=== PATIENT | female | born 1975 | race Caucasian/White ===

== ENCOUNTER → 2017-06-02 | Outpatient (CLI) | payer MEDICAID ==
--- NOTE | 2017-06-02 12:45 | RADIOLOGY REPORT (SQ) ---
EXAM DESCRIPTION: HIP RIGHT AP/LATERAL COMPLETED DATE/TIME: 06/02/2017 11:42 am REASON FOR STUDY: LOW BACK PAIN/RIGHT HIP PAIN M54.5 LOW BACK PAIN M25.551 PAIN IN RIGHT HIP COMPARISON: None. NUMBER OF VIEWS: Two views. TECHNIQUE: AP pelvis and additional frog-leg view of the right hip. LIMITATIONS: None. FINDINGS: MINERALIZATION: Normal. RIGHT HIP: No fracture or dislocation. No worrisome bone lesions. LEFT HIP: No fracture or dislocation. No worrisome bone lesions. PUBIS AND ISCHIUM: No fracture. PELVIS: No fracture. SACRUM: There is mild sclerosis of the lower aspect of the left sacroiliac joint. LOWER LUMBAR SPINE: No fracture or dislocation. No worrisome bone lesions. No significant disc disea se. SOFT TISSUES: No findings. OTHER: No other significant finding. IMPRESSION: 1. Normal right hip. 2. Possible left sacroiliitis. TECHNICAL DOCUMENTATION: JOB ID: [id number] [employer]- All Rights Reserved
--- NOTE | 2017-06-02 12:46 | RADIOLOGY REPORT (SQ) ---
EXAM DESCRIPTION: LUMBAR SPINE COMPLETE COMPLETED DATE/TIME: 06/02/2017 11:42 am REASON FOR STUDY: LOW BACK PAIN/RIGHT HIP PAIN M54.5 LOW BACK PAIN M25.551 PAIN IN RIGHT HIP COMPARISON: None. NUMBER OF VIEWS: Five views including obliques. TECHNIQUE: AP, lateral, oblique, and sacral radiographic images acquired of the lumbar spine. LIMITATIONS: None. FINDINGS: MINERALIZATION: Normal. SEGMENTATION: Normal. No transitional anatomy. ALIGNMENT: Minimal levoscoliosis. This could be positional. VERTEBRAE: Maintained height. No fracture or worrisome bone lesion. DISCS: Preserved height. No significant osteophytes or end plate irregularity. POSTERIOR ELEMENTS: Pedicles and facets are intact. No pars defect or posterior arch defects. HARDWARE: None in the spine. PARASPINAL SOFT TISSUES: Normal. PELVIS: Intact as visualized. No fractures or worrisome bone lesions. SI joints intact. OTHER: No other significant finding. IMPRESSION: The study is essentially normal. Minimal scoliosis as described. TECHNICAL DOCUMENTATION: JOB ID: [id number] [employer]- All Rights Reserved
== END ==
LOC: OD 11:27
PROVIDERS: ATTEND Physician Assistant
DX: M54.5 Low back pain (principal); M25.551 Pain in right hip
CPT/HCPCS: 72110

== ENCOUNTER 2017-06-13 17:18 | Emergency (ER) | payer MEDICAID ==
[2017-06-13] MEDS ORDERED: NORMAL SALINE 1000 ML 1,000 ML IV PRN (17:39)
[2017-06-13] MEDS ORDERED: ONDANSETRON HCL INJ/PF 4 MG/2 ML SDV IV ONE ×2 (17:39→19:34)
--- NOTE | 2017-06-13 17:42 | ER Document Report ---
ED Medical Screen (RME) - General Chief Complaint: Dizziness Stated Complaint: DIZZINESS Time Seen by Provider: 06/13/17 17:39 Notes: Patient states approximately 1 hour before arrival she developed the sudden onset while bending over of severe dizziness. It was accompanied by a strange sensation that went down the left side of her neck. She states that she has to stay bent over at the waist because if she tries to sit up she has severe nausea vomiting and dizziness. She denies any pain in the neck or head. She denies any previous similar episodes. She does have a history of previous neck surgery and is on chronic pain medications for this. Patient also states she has very heavy periods and is scheduled for an ablation at the end of this week. TRAVEL OUTSIDE OF THE [place] IN LAST 30 DAYS: No - Related Data Allergies/Adverse Reactions: atropine sulfate [From Lomotil] Allergy (Unknown, Verified 06/08/17 15:31) Rash diphenoxylate HCl [From Lomotil] Allergy (Unknown, Verified 06/08/17 15:31) Rash Penicillins Allergy (Unknown, Verified 05/10/12 11:54) Sulfa (Sulfonamide Antibiotics) Allergy (Unknown, Verified 06/08/17 15:31) Rash adhesive tape Allergy (Verified 06/08/17 15:31) Rash latex Allergy (Verified 06/08/17 15:31) "burn rahman" morphine Allergy (Verified 06/08/17 15:53) "Hallucinating and Burning" Tetracyclines Allergy (Verified 06/08/17 15:31) "Really bad rash" Past Medical History Renal/ Medical History: Denies: Hx Peritoneal Dialysis Musculoskeltal Medical History: Reports Hx Arthritis, Reports Hx Muscle Spasm, Reports Hx Musculoskeletal Trauma - C5 Past Surgical History: Reports: Hx Cardiac Surgery - ablasion, Hx Section, Hx Cholecystectomy, Hx Tubal Ligation - Immunizations Hx Diphtheria, Pertussis, Tetanus Vaccination: Yes Physical Exam - Vital signs Vitals: Temp Pulse Resp BP Pulse Ox 97.7 F 88 20 145/88 H 98 06/13/17 17:24 06/13/17 17:24 06/13/17 17:24 06/13/17 17:24 06/13/17 17:24 Course - Vital Signs Vital signs: Temp Pulse Resp BP Pulse Ox 97.7 F 88 20 145/88 H 98 06/13/17 17:24 06/13/17 17:24 06/13/17 17:24 06/13/17 17:24 06/13/17 17:24
[2017-06-13 18:32] LABS: ABSOLUTE EOSINOPHILS # (AUTO) 0.1 10^3/uL (0.0-0.6); ABSOLUTE LYMPHOCYTES (AUTO) 1.8 10^3/uL (0.5-4.7); ABSOLUTE MONOCYTES (AUTO) 0.5 10^3/uL (0.1-1.4); ABSOLUTE NEUT (AUTO) 3.8 10^3/uL (1.7-8.2); BASOPHILS % (AUTO) 0.8 % (0-2); EOSINOPHILS % (AUTO) 1.7 % (0-6); HEMATOCRIT 37.9 % (36.0-47.0); HEMOGLOBIN 12.8 g/dL (12.0-15.5); HGB HCT DIFFERENCE 0.5; LYMPHOCYTES % (AUTO) 28.5 % (13-45); MEAN CORPUSCULAR HEMOGLOBIN 31.3 pg (27.0-33.4); MEAN CORPUSCULAR HGB CONC 33.9 g/dL (32.0-36.0); MEAN CORPUSCULAR VOLUME 92 fl (80-97); MONOCYTES % (AUTO) 8.7 % (3-13); RED CELL DISTRIBUTION WIDTH 13.5 % (11.5-14.0); SEGMENTED NEUTROPHILS % (AUTO) 60.3 % (42-78); WHITE BLOOD COUNT 6.3 10^3/uL (4.0-10.5)
[2017-06-13 18:46] LABS: ALANINE AMINOTRANSFERASE 31 U/L (9-52); ALBUMIN 4.2 g/dL (3.5-5.0); ALKALINE PHOSPHATASE 59 U/L (38-126); ANION GAP 10 (5-19); ASPARTATE AMINO TRANSFERASE 28 U/L (14-36); BILIRUBIN,DIRECT 0.4 mg/dL (0.0-0.4); BILIRUBIN,TOTAL 0.5 mg/dL (0.2-1.3); BLOOD UREA NITROGEN 12 mg/dL (7-20); CALCIUM 9.2 mg/dL (8.4-10.2); CARBON DIOXIDE 22 mmol/L (22-30); CHLORIDE 105 mmol/L (98-107); CREATININE RESULT 0.86 mg/dL (0.52-1.25); GLUCOSE 84 mg/dL (75-110); POTASSIUM 4.4 mmol/L (3.6-5.0)
[2017-06-13] MEDS ORDERED: MECLIZINE HCL 25 MG TABLET PO ONE (19:34)
[2017-06-13] MEDS ORDERED: LORAZEPAM 1 MG TABLET PO ONE (19:35)
--- NOTE | 2017-06-13 19:37 | ER Document Report ---
ED General - General TRAVEL OUTSIDE OF THE [place] IN LAST 30 DAYS: No <FRANSISCO KIRK - Last Filed: 06/14/17 05:14> <NORMAN BELL - Last Filed: 06/19/17 12:22> - General Chief Complaint: Dizziness Stated Complaint: DIZZINESS Time Seen by Provider: 06/13/17 17:39 Notes: Patient is a 41-year-old female that comes emergency department for chief complaint of dizziness and nausea, she states that she also felt the pain down the back of her neck earlier today. She states that she was bent over at work and tried to stand up but when she did the room starts to spin and she felt nauseated. She states that she feels like if she lies down or bends over she improves but if she looks up or stands up the room begins to spin again. She states she has had episodes of the same in the past but this is worse than usual. She denies a headache, focal numbness or weakness, trauma, fever, visual changes. Past medical history of cervical fusion years ago, chronic pain medicine for this, and dysfunctional uterine bleeding with pending ablation in about a week. She denies current abdominal pain. (FRANSISCO KIRK) - Related Data Allergies/Adverse Reactions: atropine sulfate [From Lomotil] Allergy (Unknown, Verified 06/08/17 15:31) Rash diphenoxylate HCl [From Lomotil] Allergy (Unknown, Verified 06/08/17 15:31) Rash Penicillins Allergy (Unknown, Verified 05/10/12 11:54) Sulfa (Sulfonamide Antibiotics) Allergy (Unknown, Verified 06/08/17 15:31) Rash adhesive tape Allergy (Verified 06/08/17 15:31) Rash latex Allergy (Verified 06/08/17 15:31) "burn rahman" morphine Allergy (Verified 06/08/17 15:53) "Hallucinating and Burning" Tetracyclines Allergy (Verified 06/08/17 15:31) "Really bad rash" Past Medical History - General Information source: Patient - Social History Smoking Status: Former Smoker Drug Abuse: None Lives with: Family Family History: Reviewed & Not Pertinent Patient has suicidal ideation: No Patient has homicidal ideation: No Renal/ Medical History: Denies: Hx Peritoneal Dialysis Musculoskeltal Medical History: Reports Hx Arthritis, Reports Hx Muscle Spasm, Reports Hx Musculoskeletal Trauma - C5 Past Surgical History: Reports: Hx Cardiac Surgery - ablasion, Hx Section, Hx Cholecystectomy, Hx Tubal Ligation - Immunizations Hx Diphtheria, Pertussis, Tetanus Vaccination: Yes <FRANSISCO KIRK - Last Filed: 06/14/17 05:14> Review of Systems - Review of Systems Constitutional: No symptoms reported EENT: No symptoms reported Cardiovascular: No symptoms reported Respiratory: No symptoms reported Gastrointestinal: See HPI Genitourinary: No symptoms reported Female Genitourinary: No symptoms reported Musculoskeletal: No symptoms reported Skin: No symptoms reported Hematologic/Lymphatic: No symptoms reported Neurological/Psychological: See HPI <FRANSISCO KIRK - Last Filed: 06/14/17 05:14> Physical Exam - Vital signs Interpretation: Normal - General General appearance: Alert, Other - Patient lying sideways on the bed, does not appear to be in distress, appears mildly uncomfortable. - HEENT Head: Normocephalic, Atraumatic Eyes: Normal Conjunctiva: Normal Extraocular movements intact: Yes Eyelashes: Normal Pupils: PERRL Nasal: Normal - Images and Mouth/Lips: Normal Mucous membranes: Normal Pharynx: Normal Neck: Normal - Respiratory Respiratory status: No respiratory distress Chest status: Nontender Breath sounds: Normal. No: Decreased air movement, Wheezing Chest palpation: Normal - Cardiovascular Rhythm: Regular. No: Tachycardia Heart sounds: Normal auscultation, S1 appreciated, S2 appreciated Murmur: No - Abdominal Inspection: Normal Distension: No distension Bowel sounds: Normal Tenderness: Nontender Organomegaly: No organomegaly - Back Back: Normal, Nontender - Extremities General upper extremity: Normal inspection, Nontender, Normal color, Normal ROM , Normal temperature General lower extremity: Normal inspection, Nontender, Normal color, Normal ROM , Normal temperature, Normal weight bearing. 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 After meclizine, additional Zofran, IV fluids patient's symptoms resolved. She is able to stand with only minimal spinning sensation. She is well-appearing. She states she feels much better and she is ready to leave. Patient actually declined the Ativan which I had originally ordered for her, however she states she would like this additionally as an option at home. Patient has had symptoms of vertigo in the past, improvement of symptoms with medications, evaluation, and workup are most suggestive of labyrinthitis. Low suspicion of intracranial abnormality such as SAH or bleed, no headache; no focal neurological deficits suggesting CVA, no evidence of cardiovascular issue. Discussed follow-up, discussed return precautions, patient states understanding and agreement. ( FRANSISCO KIRK) - Vital Signs Vital signs: Temp Pulse Resp BP Pulse Ox 97.7 F 82 13 124/88 H 96 06/13/17 21:11 06/13/17 21:11 06/13/17 21:11 06/13/17 21:11 06/13/17 21:11 - Laboratory Laboratory results interpreted by me: 06/13/17 19:30 Urine Ketones TRACE H Discharge <FRANSISCO KIRK - Last Filed: 06/14/17 05:14> <NORMAN BELL - Last Filed: 06/19/17 12:22> - Discharge Clinical Impression: Dizziness, Vertigo Condition: Stable Disposition: HOME, SELF-CARE Additional Instructions: Your laboratory workup is normal. Your examination and symptoms are most consistent with labyrinthitis. This is a temporary disorder of the inner ear. Take Meclizine as prescribed, take Zofran if needed, if needed also take the Ativan additionally. Avoid driving if you take the Ativan. I also recommend not driving until symptoms of dizziness and nausea have completely resolved. Follow up with Primary Care. Return to the ED for any concerning or worsening symptoms including headache, fever, uncontrolled vomiting, weakness on one side of her body, or any other concerning symptoms. Labyrinthitis Labyrinthitis is a temporary disease of the inner ear. It's sometimes called vestibulitis. It often starts a few days after a cold or virus infection. Symptoms include vertigo (the spinning type of dizziness) or a sense of unsteadiness and nausea. The symptoms usually go away in a couple of days without any treatment. You should rest and keep your head still. The dizziness is worse if you move your head. Closing the eyes usually helps. Don't drive, work with dangerous machinery, or get up on ladders or scaffolds until a few days after the dizziness resolves. Medicine such as meclizine (Antivert, Bonine) can reduce the dizziness and nausea. Tranquilizers (such as diazepam) can suppress your sense of balance, reducing the unpleasantness of the vertigo. Call or return if you develop ear pain, loss of hearing, fever, severe vomiting, or any other new symptom. Prescriptions: Lorazepam [Ativan 1 mg Tablet] 1 mg PO Q4 PRN #8 tab PRN Reason: Meclizine HCl [Bonine] 25 mg PO TID #24 tab.chew Ondansetron [Zofran Odt 4 mg Tablet] 1 - 2 tab PO Q4H PRN #15 tab.rapdis PRN Reason: For Nausea/Vomiting Forms: Return to Work
[2017-06-13 19:52] LABS: APPEARANCE,URINE CLEAR; BILIRUBIN,URINE NEGATIVE (NEGATIVE); GLUCOSE, URINE NEGATIVE (NEGATIVE); KETONES,URINE TRACE mg/dL (NEGATIVE); LEUKOCYTE ESTERASE,URINE NEGATIVE (NEGATIVE); NITRITE,URINE NEGATIVE (NEGATIVE); PROTEIN,URINE NEGATIVE (NEGATIVE); URINE SPECIFIC GRAVITY 1.003; UROBILINOGEN,URINE NEGATIVE mg/dL (<2.0)
[2017-06-13] MEDS ORDERED: ONDANSETRON ODT 4 MG TAB (6 TAB/DSPK) PO PRN (20:54)
[2017-06-13 22:03] VITALS: BP 124/88
== END 2017-06-13 21:11 | disposition home or self-care (01) ==
LOC: ER 17:18
DX: R42 Dizziness and giddiness (principal); R11.0 Nausea; Z88.0 Allergy status to penicillin; Z88.2 Allergy status to sulfonamides; Z91.040 Latex allergy status; Z90.49 Acquired absence of other specified parts of digestive tract; Z98.51 Tubal ligation status
CPT/HCPCS: 99284; 96361; 96374; 36415; 85025; 81025; 80053; 81001; J2405; J7030

== ENCOUNTER 2017-06-15 05:21 | Day surgery (SDC) | payer MEDICAID ==
[2017-06-09 10:55] LABS: HEMOGLOBIN 13.2 g/dL (12.0-15.5); HGB HCT DIFFERENCE 0.6; MEAN CORPUSCULAR HEMOGLOBIN 31.3 pg (27.0-33.4); MEAN CORPUSCULAR VOLUME 92 fl (80-97); RED BLOOD COUNT 4.24 10^6/uL (3.72-5.28); RED CELL DISTRIBUTION WIDTH 13.9 % (11.5-14.0); WHITE BLOOD COUNT 5.1 10^3/uL (4.0-10.5)
[2017-06-09 10:58] LABS: APPEARANCE,URINE SLIGHTLY-CLOUDY; BILIRUBIN,URINE NEGATIVE (NEGATIVE); GLUCOSE, URINE NEGATIVE (NEGATIVE); KETONES,URINE NEGATIVE (NEGATIVE); LEUKOCYTE ESTERASE,URINE NEGATIVE (NEGATIVE); NITRITE,URINE NEGATIVE (NEGATIVE); PROTEIN,URINE NEGATIVE (NEGATIVE); URINE SPECIFIC GRAVITY 1.005; UROBILINOGEN,URINE NEGATIVE mg/dL (<2.0)
--- NOTE | 2017-06-09 13:04 | EKG REPORT ---
SEVERITY:- NORMAL ECG - SINUS RHYTHM : Confirmed by: Tony Yan MD 09-Jun-2017 13:04:23
[~2017-06-15 05:21] MED LIST: LACTATED RINGERS 1000 ML IV PRN; METRONIDAZOLE 500 MG/NS RTU 100 ML IV PRN
[2017-06-15] MEDS ORDERED: ALBUTEROL SULFATE 0.083% NEB 2.5 MG/3 ML AMPUL NEB ONE (06:07)
[2017-06-15] MEDS ORDERED: SCOPOLAMINE HYDROBROMIDE 1.5 MG PATCH.TD72 ONE (06:39)
[2017-06-15] MEDS ORDERED: FAMOTIDINE INJ/PF 20 MG/2 ML SDV IV ONE ×2 (06:40→06:45)
[2017-06-15] MEDS ORDERED: FENTANYL CITRATE INJ/PF 100 MCG/2 ML AMPUL ONE (06:44)
[2017-06-15] MEDS ORDERED: EPHEDRINE SULFATE INJ 50 MG/1 ML AMPULE ONE (06:44)
[2017-06-15] MEDS ORDERED: MIDAZOLAM 2 MG/2 ML INJ ONE (06:44)
[2017-06-15] MEDS ORDERED: PROPOFOL INJ 200 MG/20 ML VIAL IV ONE (06:45)
[2017-06-15] MEDS ORDERED: SCOPOLAMINE HYDROBROMIDE 1.5 MG PATCH.TD72 TD ONE (06:45)
[2017-06-15] MEDS ORDERED: ACETAMINOPHEN 0 ML IV ONE (06:45)
[2017-06-15] MEDS ORDERED: KETOROLAC TROMETHAMINE 60 MG/2 ML SDV ONE (06:48)
[2017-06-15] MEDS ORDERED: IBUPROFEN INJ 800 MG/8 ML VIAL IV ONE (06:49)
[2017-06-15] MEDS ORDERED: FENTANYL CITRATE INJ/PF 100 MCG/2 ML AMPUL IV PRN ×3 (08:23)
[2017-06-15] MEDS ORDERED: DIPHENHYDRAMINE HCL 50 MG/ML VIAL IV PRN (08:23)
[2017-06-15] MEDS ORDERED: ONDANSETRON HCL INJ/PF 4 MG/2 ML SDV IV PRN (08:23)
--- NOTE | 2017-06-15 08:52 | OPERATIVE REPORT E ---
Operative Report NAME: MIKE HARRY : 1975 AGE: 41Y DATE OF SURGERY: 06/15/2017 ROOM: PREOPERATIVE DIAGNOSIS: ABNORMAL UTERINE BLEEDING. POSTOPERATIVE DIAGNOSIS: ABNORMAL UTERINE BLEEDING. OPERATION: Hysteroscopy, D and C, with NovaSure endometrial ablation. SURGEON: FOUZIA MENDEZ M.D. ANESTHESIA: Laryngeal mask. ESTIMATED BLOOD LOSS: Scant. SPECIMEN TO PATHOLOGY: Endometrial curettings. FINDINGS: Irregular endometrial cavity with possible endometrial polyp. Cavity measured 4 cm in length and 2.5 in width. Ablation time was 1 minute and 55 seconds at a power of 55. DESCRIPTION OF PROCEDURE: After discussing risks, benefits and alternatives of the procedure and obtaining informed consent, the patient was taken to the operating room where anesthesia was achieved. She was positioned in the dorsal lithotomy position and prepped and draped in the usual standard fashion. The bladder was drained of approximately 500 mL of urine. Speculum was placed in the vagina and the anterior aspect of the cervix grasped with a single-tooth tenaculum. The cervix was serially dilated to allow passage of the hysteroscope. Hysteroscopy was performed. The scope was removed. The cavity was curetted until it felt clean. The NovaSure endometrial ablation device was placed and the cavity measurements obtained. The cavity integrity assessment passed. The cavity was ablated for 1 minute 55 seconds. The device was then removed and the hysteroscope replaced. A burn of the endometrial lining was observed. The hysteroscope was removed and tenaculum removed from the cervix. Hemostasis was assured and the speculum was removed. The patient was taken out of dorsal lithotomy, awakened from anesthesia and to recovery in stable condition. All sponge, needle, lap, and instrument counts were correct x2. DICTATING PHYSICIAN: FOUZIA MENDEZ M.D. [id number] PHY#: [id number] ID: [id number] JOB#: [id number] ACCT: [id number] cc:FOUZIA MENDEZ M.D. >
[2017-06-15] MEDS ORDERED: OXYCODONE HCL IR 5 MG TABLET PO PRN ×2 (08:54→08:55)
[2017-06-15] MEDS ORDERED: HYDROMORPHONE HCL INJ/PF 2 MG/ML AMPULE IV PRN (08:54)
[2017-06-15 13:12] VITALS: BP 121/77
[2017-06-15] MEDS ORDERED: GLYCOPYRROLATE INJ 0.4 MG/2 ML VIAL ONE (13:23)
[2017-06-15] MEDS ORDERED: ONDANSETRON HCL INJ/PF 4 MG/2 ML SDV ONE (13:23)
[2017-06-15] MEDS ORDERED: LIDOCAINE 2% INJ-PF (20 MG/ML) 10 ML AMPUL ONE (13:23)
[2017-06-15] MEDS ORDERED: DEXAMETHASONE SOD PHOSPHATE INJ 4 MG/1 ML VIAL ONE (13:23)
== END 2017-06-15 11:10 | disposition home or self-care (01) ==
LOC: OROUT 05:21
PROVIDERS: ATTEND Specialist
PROC: 0U5B8ZZ Destruction of Endometrium, Via Natural or Artificial Opening Endoscopic (ICD-10-PCS; principal; 2017-06-15 07:30)
DX: N93.9 Abnormal uterine and vaginal bleeding, unspecified (principal); N84.0 Polyp of corpus uteri; F32.9 Major depressive disorder, single episode, unspecified; F17.210 Nicotine dependence, cigarettes, uncomplicated; M19.90 Unspecified osteoarthritis, unspecified site; Z79.899 Other long term (current) drug therapy; Z88.2 Allergy status to sulfonamides; Z88.5 Allergy status to narcotic agent
CPT/HCPCS: 93005; 36415; 85027; 81025; 81001; 88305 ×2; 93010; 94640; 58563; J2250; J1100; J1885; J3010; J3490 ×4; J2405; J2704; S0028; 952; J0131; J1741

== ENCOUNTER → 2017-12-09 | Outpatient (CLI) | payer MEDICAID ==
--- NOTE | 2017-12-09 11:05 | RADIOLOGY REPORT (SQ) ---
EXAM DESCRIPTION: TOE LEFT COMPLETED DATE/TIME: 12/09/2017 8:58 am REASON FOR STUDY: PAIN OF LEFT GREAT TOE M79.675 PAIN IN LEFT TOE(S) COMPARISON: None. NUMBER OF VIEWS: Three views. TECHNIQUE: AP, lateral, and oblique images acquired of the left first toe. LIMITATIONS: None. FINDINGS: MINERALIZATION: Normal. BONES: No acute fracture or dislocation. No worrisome bone lesions. JOINTS: No effusions. SOFT TISSUES: No soft tissue swelling. No foreign body. OTHER: No other significant finding. IMPRESSION: NEGATIVE STUDY OF THE LEFT TOE. NO RADIOGRAPHIC EVIDENCE OF ACUTE INJURY. COMMENT: SITE OF TRAUMA/COMPLAINT MARKED/STAMP COMPLETED: YES. TECHNICAL DOCUMENTATION: JOB ID: [id number] [employer]- All Rights Reserved
== END ==
LOC: RAD 08:39
PROVIDERS: ATTEND Nurse Practitioner Acute Care
DX: M79.675 Pain in left toe(s) (principal)

== ENCOUNTER 2017-12-14 22:06 | Emergency (ER) | payer MEDICAID ==
[2017-12-14 22:50] VITALS: BP 116/80
[2017-12-15] MEDS ORDERED: CEPHALEXIN 500 MG CAPSULE PO ONE (00:10)
--- NOTE | 2017-12-15 00:14 | ER Document Report ---
ED Extremity Problem, Lower - General Chief Complaint: Toe Injury Stated Complaint: LEFT BIG TOE PAIN Time Seen by Provider: 12/15/17 00:10 Mode of Arrival: Ambulatory Information source: Patient Notes: 32-year-old female presented ED for ingrown toenail to the large toe on the left foot. She states she went got a pedicure and her foot is gotten red and swollen and inflamed since then. TRAVEL OUTSIDE OF THE [place] IN LAST 30 DAYS: No - HPI Patient complains to provider of: Pain Location: Great Toe Occurred: Other - States she has a history of ingrown toenails and she went to the spine and had her ingrown toenail trimmed and the toe started swelling and became red and inflamed Onset/Duration: Gradual Quality of pain: Sharp Severity: Moderate Pain Level: 3 Context: Other - Head ingrown toenail trimmed at the spinal canal is inflamed Recent injury: No Associated symptoms: Painful ambulation Exacerbated by: Movement, Walking Relieved by: Other - Soaking in warm water - Related Data Allergies/Adverse Reactions: atropine sulfate [From Lomotil] Allergy (Unknown, Verified 06/08/17 15:31) Rash diphenoxylate HCl [From Lomotil] Allergy (Unknown, Verified 06/08/17 15:31) Rash Penicillins Allergy (Unknown, Verified 05/10/12 11:54) Sulfa (Sulfonamide Antibiotics) Allergy (Unknown, Verified 06/08/17 15:31) Rash adhesive tape Allergy (Verified 06/08/17 15:31) Rash latex Allergy (Verified 06/08/17 15:31) "burn rahman" morphine Allergy (Verified 06/08/17 15:53) "Hallucinating and Burning" Tetracyclines Allergy (Verified 06/08/17 15:31) "Really bad rash" Past Medical History - General Information source: Patient - Social History Smoking Status: Current Every Day Smoker Cigarette use (# per day): Yes - 7 Chew tobacco use (# tins/day): No Smoking Education Provided: Yes - 4 minutes Frequency of alcohol use: None Drug Abuse: None 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 Lives with: Family Family History: Arthritis, DM, Malignancy Patient has suicidal ideation: No Patient has homicidal ideation: No - Past Medical History Cardiac Medical History: Reports: Other - SVT with ablation Pulmonary Medical History: Reports: None EENT Medical History: Reports: None Neurological Medical History: Reports: None Endocrine Medical History: Reports: None Renal/ Medical History: Reports: None Malignancy Medical History: Reports: None GI Medical History: Reports: None Musculoskeltal Medical History: Reports Hx Arthritis, Reports Hx Muscle Spasm, Reports Hx Musculoskeletal Trauma - C5 Skin Medical History: Reports None Psychiatric Medical History: Reports: None Traumatic Medical History: Reports: Hx Spine Fracture - Neck Infectious Medical History: Reports: None Past Surgical History: Reports: Hx Appendectomy, Hx Section, Hx Cholecystectomy, Hx Gynecologic Surgery - Uterine ablation, Hx Orthopedic Surgery - Cervical full fusion for fracture neck left knee surgery, Hx Tubal Ligation, Other - Cardiac ablation for SVT - Immunizations Immunizations up to date: Yes Hx Diphtheria, Pertussis, Tetanus Vaccination: Yes Review of Systems - Review of Systems Constitutional: No symptoms reported EENT: No symptoms reported Cardiovascular: No symptoms reported Respiratory: No symptoms reported Gastrointestinal: No symptoms reported Genitourinary: No symptoms reported Female Genitourinary: No symptoms reported Musculoskeletal: Other - Ingrown toe that swollen due to salon trimming the ingrown toenail and slight infection Skin: No symptoms reported Hematologic/Lymphatic: No symptoms reported Neurological/Psychological: No symptoms reported -: Yes All other systems reviewed and negative Physical Exam - Vital signs Vitals: Temp Pulse Resp BP Pulse Ox 97.7 F 91 16 116/80 98 12/14/17 22:48 12/14/17 22:48 12/14/17 22:48 12/14/17 22:48 12/14/17 22:48 Interpretation: Normal - General General appearance: Appears well, Alert - HEENT Head: Normocephalic, Atraumatic Eyes: Normal Pupils: PERRL - Respiratory Respiratory status: No respiratory distress Chest status: Nontender Breath sounds: Normal Chest palpation: Normal - Cardiovascular Rhythm: Regular Heart sounds: Normal auscultation Murmur: No - Abdominal Inspection: Normal Distension: No distension Bowel sounds: Normal Tenderness: Nontender Organomegaly: No organomegaly - Back Back: Normal, Nontender - Extremities General upper extremity: Normal inspection, Nontender, Normal color, Normal ROM , Normal temperature General lower extremity: Normal ROM, Normal temperature, Normal weight bearing. No: Sean's sign Foot: Tender - Left great toe ingrown toenail, Nail injury, No evidence of FB, Other - Erythema swelling and tenderness around the medial aspect of the left great toe - Neurological Neuro grossly intact: Yes Cognition: Normal Orientation: AAOx4 Maria [place] Coma Scale Eye Opening: Spontaneous [place] Coma Scale Verbal: Oriented [place] Coma Scale Motor: Obeys Commands [place] Coma Scale Total: 15 Speech: Normal Motor strength normal: LUE, RUE, LLE, RLE Sensory: Normal - Psychological Associated symptoms: Normal affect, Normal mood - Skin Skin Temperature: Warm Skin Moisture: Dry Skin Color: Normal Skin irregularity: Erythema Location of irregularity: Extremities - Left great toe Irregularity with: Swelling, Tenderness Course - Vital Signs Vital signs: Temp Pulse Resp BP Pulse Ox 97.7 F 91 16 116/80 98 12/14/17 22:48 12/14/17 22:48 12/14/17 22:48 12/14/17 22:48 12/14/17 22:48 Discharge - Discharge Clinical Impression: Left ingrown toenail large toe Condition: Stable Disposition: HOME, SELF-CARE Additional Instructions: Ingrown Nail You have an ingrown nail. An ingrown nail develops when the tissues near the nail are pushed up over the nail. Irritation develops and infection follows. An ingrown nail can result from poorly fitting shoes, improper cutting of the nail, or minor injuries. Once the tissues at the edge of the nail swell, the problem can become chronic. Emergency treatment is usually removal of the portion of the nail that has become ingrown. This is followed by hot soaks three to four times a day. Antibiotics may be necessary if infection is present. After the toe heals, make certain there is no pressure on the area, either from shoes or another toe. Trim the toenails straight across, not curved back into the corners. If ingrown nails recur, an operation to remove excess tissue near the nail, or narrowing of the nail, may be necessary. Call the doctor or return if swelling increases, or red streaks, swelling, or swollen glands are found. CEPHALEXIN: The antibiotic you've been prescribed is a member of the cephalosporin class. This type of antibiotic covers a wide variety of infections, including those of the skin, lungs, and urinary tract. It's useful for staph infections. This antibiotic is slightly similar to the penicillin family. In rare cases , a person who is allergic to penicillin will also be allergic to this medication. If you have had a severe allergic reaction to penicillin, and have not taken this antibiotic since that time, notify your doctor. Antibiotics which cover many germs ("broad spectrum" antibiotics) are more likely to cause diarrhea or "yeast" infections. Women prone to vaginal yeast problems may suffer an attack after taking this antibiotic. In infants, oral thrush (white spots "stuck" on the cheek) or yeast diaper rash may result. See your doctor if these problems occur. Call at once if you develop itching, hives , shortness of breath, or lightheadedness. Epsom Salt Soaks Soak the wound area in a container of warm epsom salt water. If you can't get the wound area into a bucket or tsang, use a folded towel soaked in the epsom salt solution and apply to the area. Use clean hot tap water (about the temperature of a very warm bath), mixing in about one (1) teaspoon for every pint of water. Two gallon --> 16 teaspoons Epsom Salts One gallon --> 8 teaspoons Epsom Salts Two quarts --> 4 teaspoons Epsom Salts One quart --> 2 teaspoons Epsom Salts Soak the wound for about 20 minutes while gently moving it around in the water. Repeat this four (4) times a day. FOLLOW-UP CARE: If you have been referred to a physician for follow-up care, call the physician s office for an appointment as you were instructed or within the next two days. If you experience worsening or a significant change in your symptoms, notify the physician immediately or return to the Emergency Department at any time for re-evaluation. Prescriptions: Cephalexin Monohydrate [Keflex 500 mg Capsule] 500 mg PO Q6H 5 Days capsule Forms: Smoking Cessation Education, Return to Work Referrals: YESICA REYNOLDS DPM [ACTIVE STAFF] - Follow up as needed
== END 2017-12-15 00:31 | disposition home or self-care (01) ==
LOC: ER 22:06
DX: L60.0 Ingrowing nail (principal); F17.210 Nicotine dependence, cigarettes, uncomplicated
CPT/HCPCS: 99283

== ENCOUNTER 2018-09-24 13:11 | Emergency (ER) | payer MEDICAID, OTHER ==
[2018-09-24] MEDS ORDERED: DIPH/PERTUSS(ACELL)/TETANUS VAC/PF 0.5 ML SYR (>=10YO) IM ONE (15:08)
--- NOTE | 2018-09-24 15:10 | ER Document Report ---
HPI - HPI Patient complains to provider of: Right thumb laceration Time Seen by Provider: 09/24/18 15:01 Onset: This afternoon Onset/Duration: Sudden Quality of pain: Achy Pain Level: 2 Context: Patient states that she was wiping a block used to create lenses for glasses and got cut on the plastic. Patient with a laceration to the palmar surface of her right thumb. Patient is right-hand dominant. Associated Symptoms: Other - Thumb laceration Exacerbated by: Movement Relieved by: Denies Similar symptoms previously: No Recently seen / treated by doctor: No - ROS ROS below otherwise negative: Yes Systems Reviewed and Negative: Yes All other systems reviewed and negative - MUSCULOSKELETAL Musculoskeletal: REPORTS: Extremity pain - DERM Skin Problems: Laceration Past Medical History - General Information source: Patient - Social History Smoking Status: Never Smoker Frequency of alcohol use: None Drug Abuse: None Occupation: [employer] Family History: Arthritis, DM, Malignancy Renal/ Medical History: Denies: Hx Peritoneal Dialysis Musculoskeletal Medical History: Reports Hx Arthritis, Reports Hx Muscle Spasm, Reports Hx Musculoskeletal Trauma - C5 Traumatic Medical History: Reports: Hx Spine Fracture - Neck Past Surgical History: Reports: Hx Appendectomy, Hx Cardiac Surgery - ablasion, Hx Section, Hx Cholecystectomy, Hx Gynecologic Surgery - Uterine ablation, Hx Orthopedic Surgery - Cervical full fusion for fracture neck left knee surgery, Hx Tubal Ligation, Other - Cardiac ablation for SVT - Immunizations Immunizations up to date: Yes Hx Diphtheria, Pertussis, Tetanus Vaccination: Yes Vertical Provider Document - CONSTITUTIONAL Agree With Documented VS: Yes Exam Limitations: No Limitations General Appearance: WD/WN, No Apparent Distress - INFECTION CONTROL TRAVEL OUTSIDE OF THE [place] IN LAST 30 DAYS: No - HEENT HEENT: Atraumatic, Normocephalic - NECK Neck: Normal Inspection - RESPIRATORY Respiratory: No Respiratory Distress - CARDIOVASCULAR Pulses: Normal: Radial - BACK Back: Normal Inspection - MUSCULOSKELETAL/EXTREMETIES Musculoskeletal/Extremeties: JUAN FRIEDMAN - NEURO Level of Consciousness: Awake, Alert, Appropriate Motor/Sensory: No Motor Deficit - DERM Integumentary: Warm, Dry, Laceration - Superficial half centimeter laceration to palmar surface of right thumb, no tendon deficit Course - Vital Signs Vital signs: Temp Pulse Resp BP Pulse Ox 98.3 F 95 16 131/94 H 98 09/24/18 13:17 09/24/18 13:17 09/24/18 13:17 09/24/18 13:17 09/24/18 13:17 Discharge - Discharge Clinical Impression: Laceration of right thumb Qualifiers: Encounter type: initial encounter Damage to nail status: without damage Foreign body presence: without foreign body Qualified Code(s): S61.011A - Laceration without foreign body of right thumb without damage to nail, initial encounter Condition: Stable Disposition: HOME, SELF-CARE Instructions: Non-Sutured Laceration (OM), Tetanus Immunization Given ([facility]) Additional Instructions: Return immediately for any new or worsening symptoms Followup with hand surgeon for any persistent pain or problems Forms: Return to Work Referrals: ROX RAMOS PA-C [Primary Care Provider] - Follow up as needed MARIAN VARGAS DO [ACTIVE STAFF] - Follow up as needed
[2018-09-24 15:39] VITALS: BP 137/94
== END 2018-09-24 15:40 | disposition home or self-care (01) ==
LOC: ER 13:11
DX: S61.011A Laceration without foreign body of right thumb without damage to nail, initial encounter (principal); W45.8XXA Other foreign body or object entering through skin, initial encounter; Y93.89 Activity, other specified; Y99.0 Civilian activity done for income or pay
CPT/HCPCS: 90715; 99282